=== PATIENT | female | born 1950 | race Caucasian/White ===

== ENCOUNTER 2021-12-30 20:25 | Observation (INO) ==
[2021-12-30 20:32] VITALS: BMI 40.9
--- NOTE | 2021-12-30 22:37 | DR.DIZZY ---
HPI Time seen Time Seen by Provider: 12/30/21 22:32 PCP Primary Care Physician: MARCIA HPI Comment HPI Comment: PATIENT IS 71YR OLD FEMALE IN ER WITH COUGH, CHILLS AND GENERALIZED WEAKNESS TIMES 3 DAYS. HE HAS BEING FALLING AND PASSING OUT. SHE IS EXPOSED TO COVID 19 VIRUS. HER TESTED POSITIVE TO VIRUS ONE WEEK AGO. SHE DENIES VOMITING OR DIARRHEA AND DENIES DYSURIA. DENIES INJURY FROM THE FALLS. Complaint Chief Complaint Doctor Comments: WEAK, FALLING AND PASSING OUT PAST 3 DAYS. Chief Complaint:: Pt states that she has been weak, falling, and passing out. Pt also reports fever, chills and cough. Pt states that her tested positive for Covid approximately 1 wk ago. Pt states that she has not been tested. COVID-19 Coronavirus risk:travel/contact w/high risk person: Yes Has patient experienced Coronavirus symptoms: Yes Coronavirus symptoms experienced: Fever and Coughing Nurses Notes Reviewed Nurses Notes Review: Yes Source History Provided: Patient Mode of Arrival Mode of Arrival: Wheelchair Timing Onset of Chief Complaint: 12/24/21 Came on: Suddenly Duration Duration: Constant Duration: Days Location of Weakness Weakness Location: Generalized Context Onset: At rest History of: None Stroke Symptoms: None Severity Severity: Normal activity level Modifying factors Worsens: Other (EXERTION.) Associated signs and symptoms Associated Signs and Symptoms: Faintness, Syncope, Weak and Fever PMH PMH Past Medical History: No Past Surgical History: Yes Surgical History: Abdominal Surgery Past Surgical History Comment: dental sugery 2 weeks ago Family History History of Family Medical Conditions: Yes Family Medical History: Cancer Travel Risk Coronavirus risk:travel/contact w/high risk person: Yes Has patient experienced Coronavirus symptoms: Yes Coronavirus symptoms experienced: Fever and Coughing Infectious screening Have you traveled outside the country in the last 6 months?: No Isolation: Droplet ROS Review of Systems Constitutional: See HPI, Fever, Weakness and Fatigue Eyes: No Symptoms Reported and See HPI ENTM: See HPI, Nose Discharge and Nose Congestion Respiratoy: See HPI and Moist Cough; negative Short of Breath and Wheezing Cardiovascular: No Symptoms Reported and See HPI; negative Chest Pain Gastrointestinal/Abdominal: No Symptoms Reported and See HPI; negative Abdominal Pain, Diarrhea and Vomiting Genitourinary: No Symptoms Reported and See HPI; negative Dysuria, Frequency and Hematuria Neurological: See HPI and Weakness; negative Headache and Dizziness Musculoskeletal: No Symptoms Reported and See HPI; negative Back Pain and Muscle Pain Integumentary: No Symptoms Reported and See HPI; negative Rash and Juandice Hematologic/Lymphatic: No Symptoms Reported and See HPI; negative Easy Bruising Endocrine: No Symptoms Reported and See HPI; negative Increased Thirst and Increased Urine Psychiatric: No Symptoms Reported and See HPI All Other Systems: Reviewed and Negative PE Vital Signs Vitals: Temperature 98.7 F Pulse Rate 85 Respiratory Rate 20 Blood Pressure 113/56 O2 Sat by Pulse Oximetry 92 General Limitations: No Limitations General Appearance: Alert and In No Apparent Distress Head Head Exam: Normal Inspection Eyes Eye exam: Normal Appearance; negative Scleral Icterus and Conjunctival Injection Pupils: Regular, Round: Bilateral and Reactive: Bilateral Sclera/Conjunctival: Normal Inspection: Bilateral ENT ENT Exam: Normal Exam, Normal External Ear Exam and TM's Normal Bilaterally; negative Normal Oropharynx Neck Neck Exam: Normal Inspection, Full ROM and Trachea Midline; negative Tenderness Chest Chest Inspection: Normal Inspection and Symmetric Chest Wall Rise; negative Tenderness Respiratory Respiratory Exam: Normal Lung Sounds Bilat; negative Accessory Muscle Use, Chest Wall Tenderness and Respiratory Distress Respiratory Exam: Bilateral: Rhonchi Cardiovascular Cardiovascular Exam: Regular Rate, Normal Rhythm and Normal Heart Sounds; negative Systolic Murmur and Diastolic Murmur Abdominal Exam Abdominal Exam: Normal Inspection, Normal Bowel Sounds and Soft; negative Tenderness Rectal Rectal Exam: Deferred Extremeties Extremities Exam: Normal Inspection, Full ROM and Normal Capillary Refill Back Back Exam: Normal Inspection and Full ROM; negative (R) CVA Tenderness and (L) CVA Tenderness Neurologic Neurological Exam: Alert and Oriented X3; negative Motor Sensory Deficit Patient Oriented To: Person, Place and Time Speech: Fluid Speech Cranial Nerve Exam: EOM Function (II, III, IV, ): Normal, Facial Sensation (V): Normal, Facial Palsy (VII): Normal, Gag reflex (XI): Normal and Tongue Deviation: Normal Motor Strength - LUE: 5/5 Motor Strength - RUE: 5/5 Motor Strength - LLE: 5/5 Motor Strength - RLE: 5/5 Upper Motor Neuron Exam: Babinski Sign: Normal Psychiatric Psychiatric Exam: Normal Affect and Normal Mood Skin Skin Exam: Dry MDM Differential Diagnosis Differential Diagnosis: Dehydration, Dysrhythmia, Electrolyte disorder, Hypoglycemia, Myocardial infarction, TIA and Other (PNEUMONIA.) COURSE Treatment Treatment: SEE ORDERS. NS L1 AT 125CC/HR, SOLUMEDROL 125MG IV AND ZOSYN 3.375G IVPB WAS GIVEN PATIENT IN ER. LABS AND XRAYS REPORTS WERE DISCUSSED AND PATIENT ADMITTED TO HOSPITAL FOR FURTHER MANAGEMENT. Consultation Consultation Comments: DISCUSSED PATIENT WITH DR. BROWN. HE WILL ADMIT PATIENT. Education/Counseling Education/Counseling: Patient Educated On: Diagnosis ROR Labs Reviewed Laboratory Results Reviewed?: Yes Result Diagrams: 01/02/22 04:45 01/02/22 04:45 Laboratory: WBC 5.0 X10^3/uL (3.6-10.0) 12/30/21 22:45 RBC 4.36 X10^6/uL (3.5-5.4) 12/30/21 22:45 Hgb 12.6 g/dL (12.0-16.0) 12/30/21 22:45 Hct 37.8 % (36.0-47.0) 12/30/21 22:45 MCV 86.7 fL (80.0-100.0) 12/30/21 22:45 MCH 28.8 pg (27.0-34.0) 12/30/21 22:45 MCHC 33.3 g/dL (33.0-35.0) 12/30/21 22:45 RDW 15.1 % (11.6-16.5) 12/30/21 22:45 Plt Count 214 X10^3/uL (150.0-450.0) 12/30/21 22:45 MPV 8.9 fL (7.4-11.0) 12/30/21 22:45 Neut % (Auto) 75.3 % (42.0-75.0) H 12/30/21 22:45 Lymph % (Auto) 9.7 % (21.0-51.0) L 12/30/21 22:45 Pickett % (Auto) 14.4 % (0.0-13.0) H 12/30/21 22:45 Eos % (Auto) 0.0 % (0.9-2.9) L 12/30/21 22:45 Baso % (Auto) 0.6 % (0.2-1.0) 12/30/21 22:45 Neut # (Auto) 3.8 x10^3/uL (2.2-4.8) 12/30/21 22:45 Lymph # (Auto) 0.5 X10^3/uL (1.3-2.9) L 12/30/21 22:45 Pickett # (Auto) 0.7 x10^3/uL (0.3-0.8) 12/30/21 22:45 Eos # (Auto) 0.0 x10^3/uL (0.0-0.2) 12/30/21 22:45 Baso # (Auto) 0.0 X10^3/uL (0.0-0.1) 12/30/21 22:45 Absolute Nucleated RBC 0.1 /100WBC 12/30/21 22:45 Sodium 135 mmol/L (136-145) L 12/30/21 22:45 Corrected Sodium 136 mmol/L (136-145) 12/30/21 22:45 Potassium 3.9 mmol/L (3.5-5.1) 12/30/21 22:45 Chloride 100 mmol/L (98-107) 12/30/21 22:45 Carbon Dioxide 29.9 mmol/L (21-32) 12/30/21 22:45 BUN 23 mg/dL (7-18) H 12/30/21 22:45 Creatinine 1.29 mg/dL (0.55-1.02) H 12/30/21 22:45 Est GFR (MDRD) Af Amer 52 (>60) L 12/30/21 22:45 Est GFR (MDRD) Non-Af 43 (>60) L 12/30/21 22:45 Glucose 134 mg/dL (65-99) H 12/30/21 22:45 Calcium 8.5 mg/dL (8.5-10.1) 12/30/21 22:45 Corrected Calcium 9.5 mg/dL (8.5-10.1) 12/30/21 22:45 Total Bilirubin 0.30 mg/dL (0.2-1.0) 12/30/21 22:45 AST 62 Units/L (15-37) H 12/30/21 22:45 ALT 40 Units/L (12-78) 12/30/21 22:45 Alkaline Phosphatase 104 Units/L (46-116) 12/30/21 22:45 Creatine Kinase 55 Units/L (26-192) 12/30/21 22:45 CK-MB (CK-2) < 1.0 ng/mL (0-4.0) 12/30/21 22:45 CK/CKMB % Calc 1.8 % (<4) 12/30/21 22:45 Troponin I High Sens 12.7 ng/L (4.0-60.0) 12/30/21 22:45 Total Protein 7.8 g/dL (6.4-8.2) 12/30/21 22:45 Albumin 2.7 g/dL (3.4-5.0) L 12/30/21 22:45 Globulin 5.1 g/dL (2.5-4.5) H 12/30/21 22:45 Albumin/Globulin Ratio 0.5 Ratio (1.1-2.1) L 12/30/21 22:45 Influenza Type A Ag Negative-presumptive (NEGATIVE) 12/30/21 23:06 Influenza Type B Ag Negative-presumptive (NEGATIVE) 12/30/21 23:06 SARS CoV-2 RNA Rapid ROXANN Positive (NEGATIVE) A 12/30/21 23:06 XRAY XRAY Interpreted by: Radiologist (REPORT NOTED AND DISCUSSED WITH PATIENT.) and Self Opioid Opioid Risk Tool Age (Rico box if 16-45): No Total: 0 Total Score Risk Category: Low Risk Copyright: [facility] predicting aberrant behaviors Diagnosis Discharge Problem: COVID-19 virus infection, Acute dehydration Pneumonia Qualifiers: Pneumonia type: due to unspecified organism Laterality: bilateral Lung l ocation: lower lobe of lung Qualified Code(s): J18.9 - Pneumonia, unspecified organism Syncopal episodes Qualifiers: Syncope type: unspecified Qualified Code(s): R55 - Syncope and collapse Instructions Instructions: Dehydration, Adult, [id number] Prone Position Therapy Near-Syncope, [id number] 10 Things You Can Do to Manage Your COVID-19 Symptoms at Home - [facility] (05/24/2020) Things to Know about the COVID-19 Pandemic - [facility] (02/07/2021) COVID-19: How to Protect Yourself and Others - [facility] COVID-19: Quarantine vs. Isolation - [facility] (11/09/2020) Community-Acquired Pneumonia, Adult, [id number] COVID-19: What to Do if You Are Sick - CDC (11/23/2020) Forms: Excuse From Work or School Precautions for COVID19 [facility] Social Distancing
[2021-12-30 22:52] LABS: BASOPHILS % (AUTO) 0.6 % (0.2-1.0); HEMATOCRIT 37.8 % (36.0-47.0); HEMOGLOBIN 12.6 g/dL (12.0-16.0); LYMPHOCYTES # (AUTO) 0.5 X10^3/uL (1.3-2.9); LYMPHOCYTES % (AUTO) 9.7 % (21.0-51.0); MEAN CORPUSCULAR HEMOGLOBIN 28.8 pg (27.0-34.0); MEAN CORPUSCULAR HGB CONC 33.3 g/dL (33.0-35.0); MEAN CORPUSCULAR VOLUME 86.7 fL (80.0-100.0); MEAN PLATELET VOLUME 8.9 fL (7.4-11.0); MONOCYTES # (AUTO) 0.7 x10^3/uL (0.3-0.8); MONOCYTES % (AUTO) 14.4 % (0.0-13.0); NEUTROPHILS # (AUTO) 3.8 x10^3/uL (2.2-4.8); NEUTROPHILS % (AUTO) 75.3 % (42.0-75.0); RED BLOOD COUNT 4.36 X10^6/uL (3.5-5.4); RED CELL DISTRIBUTION WIDTH 15.1 % (11.6-16.5)
[2021-12-30] MEDS ORDERED: NS 1,000 ML IV 1,000 ML ONE (22:54)
[2021-12-30] MEDS ORDERED: NS 1,000 ML IV 1,000 ML IV SCH (23:00)
[2021-12-30 23:14] LABS: ALANINE AMINOTRANSFERASE 40 Units/L (12-78); ALBUMIN 2.7 g/dL (3.4-5.0); ALKALINE PHOSPHATASE 104 Units/L (46-116); ASPARTATE AMINO TRANSFERASE 62 Units/L (15-37); BLOOD UREA NITROGEN 23 mg/dL (7-18); CALCIUM 8.5 mg/dL (8.5-10.1); CARBON DIOXIDE 29.9 mmol/L (21-32); CHLORIDE 100 mmol/L (98-107); CKMB % 1.8 % (<4); COR CA(FOR HYPOALB) 9.5 mg/dL (8.5-10.1); COR NA(FOR HYPERGLY) 136 mmol/L (136-145); CREATINE KINASE 55 Units/L (26-192); CREATINE KINASE MB < 1.0 ng/mL (0-4.0); CREATININE 1.29 mg/dL (0.55-1.02); SODIUM 135 mmol/L (136-145); TOTAL PROTEIN 7.8 g/dL (6.4-8.2); eGFR NON BLACK RACES 43 (>60)
--- NOTE | 2021-12-30 23:27 | CT ---
STUDY: CT HEAD WITHOUT IV CONTRASTCOMPARISON: NoneTECHNIQUE: axial images were acquired of the head without IV contrast. Coronal and sagittal images were provided. All images were reviewed in a variety of windows and levels.LIMITATIONS: Please note that CT has low sensitivity and accuracy for identifying acute infarction. In addition, there are portions of the brain that are affected by beam hardening artifact which further greatly limits identification of an acute infarct.RADIATION REDUCTION TECHNIQUE: Automated exposure control, Adjustment of the mA and/or kV according to patient size, or iterative reconstruction techniques were used.HISTORY: PT C/O PASSING OUTFINDINGS:There is diffuse cerebral atrophy with a regional distribution of low attenuation along the periventricular white matter most likely representing small vessel ischemic changes which are to a degree that would be considered within normal limits for the patient's stated age.There is no evidence of an acute intracranial bleed.There is no evidence of a mass or midline shift.There is no evidence of an extra-axial fluid collection.The hagan-white matter differentiation is within normal limits.The visualized bones are unremarkable.The visualized sinuses demonstrates circumferential mucosal thickening and edema involving the bilateral maxillary and ethmoid sinuses with a small air-fluid level in the right maxillary sinus suggesting an infectious or inflammatory sinus process.The mastoid air cells are well-aerated.IMPRESSION:1. INVOLUTIONAL CHANGES ARE PRESENT WITH FINDINGS SUGGESTING SMALL VESSEL ISCHEMIC DISEASE WHICH IS TO A DEGREE THAT WOULD BE CONSIDERED WITHIN NORMAL LIMITS FOR THE PATIENT'S STATED AGE.2. THERE IS NO EVIDENCE OF ACUTE INTRACRANIAL BLEED.Jaqui blood signed by: Jeremy Call (Dec 30, 2021 23:26:33)
--- NOTE | 2021-12-30 23:28 | RAD ---
STUDY: FRONTAL VIEW CHESTCOMPARISON: NoneHISTORY: COUGHFINDINGS:Nonspecific multifocal pleural based opacities are seen in the bilateral mid and lower lung zones.The heart size is within normal limits.The mediastinum is unremarkable.There is no evidence of pleural effusion or gross pneumothorax.The trachea is midline.IMPRESSION:1. Multifocal pleural based opacities are present in the bilateral mid and lower lung zones. This may represent acute or chronic airspace disease. Follow-up to complete resolution may be obtained as clinically indicated indicated.Electronically signed by: Jeremy Call (Dec 30, 2021 23:27:06)
[2021-12-31] MEDS ORDERED: SOLU-Medrol 125 MG VIAL IVP ONE (01:57)
[2021-12-31] MEDS ORDERED: ZOSYN VIAL 3.375 GRAMS 3.375 G in NS 100 ML IV + SPIKE MINIBAG* 100 ML IV ONE (01:59)
[2021-12-31] MEDS ORDERED: NS 100 ML IV + SPIKE MINIBAG* 100 ML IV ONE (02:06)
[2021-12-31] MEDS ORDERED: ZOSYN VIAL 3.375 GRAMS IV ONE (02:06)
[2021-12-31] MEDS ORDERED: SOLU-Medrol 125 MG VIAL ONE (02:06)
[2021-12-31] MEDS: NS 1,000 ML IV 1,000 ML IV SCH ×3 (03:13→21:02)
[2021-12-31] MEDS: ASCORBIC ACID INJ MULTI-DOSE VIAL 1,500 MG in NS 100 ML IV 100 ML IV SCH ×4 (03:13→20:06)
[2021-12-31 05:25] LABS: BASOPHILS % (AUTO) 0.4 % (0.2-1.0); HEMOGLOBIN 11.7 g/dL (12.0-16.0); LYMPHOCYTES # (AUTO) 0.3 X10^3/uL (1.3-2.9); MEAN CORPUSCULAR HEMOGLOBIN 28.8 pg (27.0-34.0); MEAN CORPUSCULAR HGB CONC 33.5 g/dL (33.0-35.0); MEAN CORPUSCULAR VOLUME 85.9 fL (80.0-100.0); MEAN PLATELET VOLUME 9.4 fL (7.4-11.0); MONOCYTES # (AUTO) 0.3 x10^3/uL (0.3-0.8); MONOCYTES % (AUTO) 8.9 % (0.0-13.0); NEUTROPHILS # (AUTO) 3.1 x10^3/uL (2.2-4.8); NEUTROPHILS % (AUTO) 82.7 % (42.0-75.0); RED BLOOD COUNT 4.07 X10^6/uL (3.5-5.4); WHITE BLOOD COUNT 3.8 X10^3/uL (3.6-10.0)
[2021-12-31 05:49] LABS: ALANINE AMINOTRANSFERASE 40 Units/L (12-78); ALBUMIN 2.5 g/dL (3.4-5.0); ALKALINE PHOSPHATASE 95 Units/L (46-116); ASPARTATE AMINO TRANSFERASE 59 Units/L (15-37); BLOOD UREA NITROGEN 23 mg/dL (7-18); CALCIUM 7.5 mg/dL (8.5-10.1); CARBON DIOXIDE 31.3 mmol/L (21-32); CHLORIDE 101 mmol/L (98-107); CKMB % 1.9 % (<4); COR CA(FOR HYPOALB) 8.7 mg/dL (8.5-10.1); COR NA(FOR HYPERGLY) 137 mmol/L (136-145); CREATINE KINASE 53 Units/L (26-192); CREATINE KINASE MB < 1.0 ng/mL (0-4.0); MAGNESIUM 2.1 mg/dL (1.7-2.9); SODIUM 137 mmol/L (136-145); TOTAL PROTEIN 7.2 g/dL (6.4-8.2); eGFR NON BLACK RACES 52 (>60)
[2021-12-31] MEDS: ZINC SULFATE PO SCH ×2 (08:17→20:07)
[2021-12-31] MEDS: TRICOR TAB 160 MG PO SCH (08:17)
[2021-12-31] MEDS: PEPCID TAB 40 MG PO SCH ×2 (08:17→20:07)
[2021-12-31] MEDS ORDERED: PHARMACY CONSULT - IVERMECTIN XX SCH (09:00)
[2021-12-31] MEDS ORDERED: VITAMIN D (1.25MG) PO SCH (09:00)
[2021-12-31] MEDS ORDERED: REMDESIVIR 200 MG in NS 250 ML IV 250 ML IV ONE (09:27)
[2021-12-31] MEDS: DUONEB 0.5 MG/3 MG (3 mL) NEB SCH ×4 (09:42→21:05)
[2021-12-31] MEDS: PULMICORT NEB TX 0.5 MG NEB SCH ×2 (09:42→21:05)
[2021-12-31] MEDS: LOVENOX INJ 30 MG SYR SC SCH ×2 (10:02→20:06)
[2021-12-31] MEDS: IVERMECTIN PO SCH (10:02)
[2021-12-31] MEDS: LUVOX PO SCH ×2 (10:02→20:07)
--- NOTE | 2021-12-31 10:20 | DR.H&P ---
H&P - History & Physical for Day of: H&P Date: 12/31/21 - Chief Complaint Chief Complaint: COUGH, SOB, WEAKNESS, FEVER, CHILLS, FREQUENT FALLS - History of Present Illness History of Present Illness: IS A 71 YEAR OLD WHITE FEMALE. SHE PRESENTED TO THE ER WITH COMPLAINTS OF COUGH, SHORTNESS OF BREATH, WEAKNESS, FEVER, FREQUENT FALLS. PATIENT REPORTS THAT SHE PASSED OUT THREE DAYS PRIOR TO ARRIVAL. SHE REPORTS THAT HER TESTED POSITIVE FOR COVID-19 APPROXIMATELY ONE WEEK PRIOR. SHE DENIES ANY PMH. AUSCULTATION OF LUNG TELLEZ REVEALED RHONCHI THROUGHOUT. ON ARRIVAL TO THE ER, HER VITALS WERE: 98.7-85-20-92%-113/56. LABS WERE OBTAINED. WBC 5.0, HGB 12.6, HCT 37.8, SODIUM 135, POTASSIUM 3.9, CHLORIDE 100, BUN 23, CREATININE 1.29, GLUCOSE 134, CALCIUM 8.5, AST 62, ALT 40, TOTAL PROTEIN 7.8, ALBUMIN 2.7. CARDIAC ENZYMES WERE WITHIN NORMAL LIMITS. INFLUENZA NEGATIVE. PATIENT WAS POSITIVE FOR COVID-19. A BRAIN CT WAS OBTAINED AND REVEALED: 1. INVOLUTIONAL CHANGES ARE PRESENT WITH FINDINGS SUGGESTING SMALL VESSEL ISCHEMIC DISEASE WHICH IS TO A DEGREE THAT WOULD BE CONSIDERED WITHIN NORMAL LIMITS FOR THE PATIENT'S STATED AGE. 2. THERE IS NO EVIDENCE OF ACUTE INTRACRANIAL BLEED. A CHEST XRAY WAS OBTAINED AND REVEALED: 1. Multifocal pleural based opacities are present in the bilateral mid and lower lung zones. This may represent acute or chronic airspace disease. Follow-up to complete resolution may be obtained as clinically indicated indicated. IN THE ER, SHE WAS GIVEN SOLU-MEDROL 125MG IV X 1, ZOSYN 3.375G IV X 1. SHE WAS ADMITTED TO THE HOSPITAL FOR FURTHER EVALUATION AND TREATMENT OF PNEUMONIA DUE TO COVID-19, SYNCOPY, DEHYDRATION. SHE WAS STARTED ON NORMAL SALINE AT 125 ML/HR, REMDESIVIR DAILY X 5 DAYS, SOLU-MEDROL 80MG IV Q8H, DUONEBS QID, PULMICORT NEBS BID, LOVENOX 30MG SC BID, ASCORBIC ACID 1500MG IV Q6H, VITAMIN D DAILY, PEPCID 40MG PO BID, TRICOR 160MG PO DAILY, LUVOX 50MG PO BID, IVERMECTIN 60MG PO DAILY X 5 DAYS, ZOSYN 3.375G IV TID, VITAMIN A DAILY, ZINC 220MG PO BID. OTHERWISE, WE PLAN TO FOLLOW UP WITH AM LABS AND CHEST XRAY AND CONTINUE TO MONITOR. TIME SPENT ON CLINICAL ASSESSMENT, REVIEWING LABS AND IMAGING, DECISION MAKING, AND DOCUMENTATION GREATER THAN 75 MINUTES. - Past Surgical History Surgical History: Appendectomy - Family History Family Medical History: Cancer - Social History Alcohol Use: None Drug Use: None - Medications Home Medications: No Known Drug Allergies Allergy (Verified 12/30/21 20:26) CONTINUE taking the following medications azithromycin 250 mg PO DAILY 12/31/21 [History] [id number] 10 ml PO TID PRN 12/31/21 [History] - Review of Systems Constitutional: See HPI, Fever, Chills, Weakness Eyes: No Symptoms Reported ENT: Nose Congestion Respiratory: See HPI, Cough, Shortness of Breath Cardiovascular: No Symptoms Reported Gastrointestinal: No Symptoms Reported Genitourinary: No Symptoms Reported Musculoskeletal: No Symptoms Reported Skin: No Symptoms Reported Neurological: Weakness - Physical Exam Vital Signs: Temperature 97.9 F Pulse Rate [Left] 66 Pulse Rate 98 Respiratory Rate 24 Blood Pressure [Right Arm] 113/56 Blood Pressure [Left Arm] 108/52 Blood Pressure 115/65 O2 Sat by Pulse Oximetry 99 Oriented: Normal Eyes: Normal Ear: Normal Nose: Normal Throat: Normal Respiratory: Diminished Throughout, Rhonchi Throughout Cardiovascular: Normal : Normal Auscultation: Bowel Sounds: Normal Palpation: Normal Tenderness: Normal Skin: Decreased Turgur, Bruising Musculoskeletal: Normal Psychiatric: Normal Mood Description: Calm Affect: Normal Speech Pattern: Clear - Assessment/Plan (1) Pneumonia due to COVID-19 virus Status: Acute Plan: ADMIT, SUPPLEMENTAL OXYGEN, IV FLUIDS, IV ANTIBITOTICS, NEB TX, IV REMDESIVIR, IV STEROIDS, IVERMECTIN, IMMUNE SUPPLEMENTS (2) Acute dehydration Status: Acute (3) Syncopal episodes Qualifiers: Syncope type: unspecified Qualified Code(s): R55 - Syncope and collapse Status: Acute - Allergies Allergies/Adverse Reactions: Allergies Allergy/AdvReac Type Severity Reaction Status Date / Time No Known Drug Allergies Allergy Verified 12/30/21 20:26
[2021-12-31] MEDS: ZOSYN VIAL 3.375 GRAMS 3.375 G in NS 100 ML IV + SPIKE MINIBAG* 100 ML IV SCH ×2 (11:22→21:02)
[2021-12-31] MEDS: SOLU-Medrol 40 MG VIAL IVP SCH ×2 (13:29→21:01)
[2021-12-31 13:40] LABS: BILIRUBIN,URINE NEGATIVE (NEGATIVE); BLOOD/HEMOGLOBIN,URINE NEGATIVE (NEGATIVE); GLUCOSE, URINE NEGATIVE (NEGATIVE); KETONES,URINE NEGATIVE (NEGATIVE); LEUKOCYTE ESTERASE ,URINE 1+ (NEGATIVE); NITRITES,URINE NEGATIVE (NEGATIVE); PROTEIN,URINE 2+ (NEGATIVE); UROBILINOGEN,URINE NORMAL (NORMAL)
[2021-12-31 13:53] LABS: APPEARANCE,URINE CLEAR (CLEAR); BACTERIA,URINE TRACE /HPF (NEGATIVE); COLOR,URINE YELLOW (YELLOW); RBC,URINE 0-2 /HPF (0-3); SQUAMOUS EPITHELIAL CELL,UR RARE /HPF (NEGATIVE)
[2021-12-31 17:01] LABS: CREATINE KINASE MB 1.1 ng/mL (0-4.0)
[2022-01-01] MEDS: ASCORBIC ACID INJ MULTI-DOSE VIAL 1,500 MG in NS 100 ML IV 100 ML IV SCH ×2 (02:32→08:42)
[2022-01-01] MEDS: SOLU-Medrol 40 MG VIAL IVP SCH ×3 (05:04→21:35)
[2022-01-01] MEDS: NS 1,000 ML IV 1,000 ML IV SCH ×2 (05:04→20:09)
[2022-01-01] MEDS: ZOSYN VIAL 3.375 GRAMS 3.375 G in NS 100 ML IV + SPIKE MINIBAG* 100 ML IV SCH ×3 (05:04→21:35)
[2022-01-01 05:25] LABS: BASOPHILS % (AUTO) 0.1 % (0.2-1.0); HEMATOCRIT 32.6 % (36.0-47.0); HEMOGLOBIN 10.9 g/dL (12.0-16.0); LYMPHOCYTES # (AUTO) 0.4 X10^3/uL (1.3-2.9); LYMPHOCYTES % (AUTO) 8.3 % (21.0-51.0); MEAN CORPUSCULAR HEMOGLOBIN 28.8 pg (27.0-34.0); MEAN CORPUSCULAR HGB CONC 33.4 g/dL (33.0-35.0); MEAN CORPUSCULAR VOLUME 86.4 fL (80.0-100.0); MEAN PLATELET VOLUME 9.3 fL (7.4-11.0); MONOCYTES # (AUTO) 0.5 x10^3/uL (0.3-0.8); MONOCYTES % (AUTO) 9.7 % (0.0-13.0); NEUTROPHILS # (AUTO) 4.4 x10^3/uL (2.2-4.8); NEUTROPHILS % (AUTO) 81.9 % (42.0-75.0); RED BLOOD COUNT 3.77 X10^6/uL (3.5-5.4); RED CELL DISTRIBUTION WIDTH 14.8 % (11.6-16.5); WHITE BLOOD COUNT 5.3 X10^3/uL (3.6-10.0)
[2022-01-01 05:45] LABS: ALANINE AMINOTRANSFERASE 29 Units/L (12-78); ALBUMIN 2.2 g/dL (3.4-5.0); ALKALINE PHOSPHATASE 94 Units/L (46-116); ASPARTATE AMINO TRANSFERASE 37 Units/L (15-37); BLOOD UREA NITROGEN 20 mg/dL (7-18); CALCIUM 7.4 mg/dL (8.5-10.1); CARBON DIOXIDE 28.2 mmol/L (21-32); CHLORIDE 107 mmol/L (98-107); COR CA(FOR HYPOALB) 8.8 mg/dL (8.5-10.1); COR NA(FOR HYPERGLY) 143 mmol/L (136-145); CREATININE 1.01 mg/dL (0.55-1.02); SODIUM 141 mmol/L (136-145); TOTAL PROTEIN 6.4 g/dL (6.4-8.2); eGFR NON BLACK RACES 57 (>60)
--- NOTE | 2022-01-01 07:45 | RAD ---
HISTORYSOBSTUDYAP chestCOMPARISONFebruary 2021FINDINGSCardiomegaly is present. There are bilateral peripheral indistinct areas of airspace involvement, similar in the right lung and slightly increasing in the left lung. No hilar enlargement, pleural fluid or pneumothorax seen.IMPRESSIONMild stable cardiac enlargement. Persistent bilateral pulmonary infiltrates, slightly increased in the left lung, the appearance suggesting an atypical pneumonia.Electronically signed by: MISHEL ELDRIDGE (Jan 01, 2022 07:45:04)
[2022-01-01] MEDS: DUONEB 0.5 MG/3 MG (3 mL) NEB SCH ×4 (08:35→20:43)
[2022-01-01] MEDS: PULMICORT NEB TX 0.5 MG NEB SCH ×2 (08:35→20:43)
[2022-01-01] MEDS: PEPCID TAB 40 MG PO SCH ×2 (08:43→20:11)
[2022-01-01] MEDS: LOVENOX INJ 30 MG SYR SC SCH ×2 (08:43→20:09)
[2022-01-01] MEDS: LUVOX PO SCH ×2 (08:43→20:11)
[2022-01-01] MEDS: TRICOR TAB 160 MG PO SCH (08:44)
[2022-01-01] MEDS: ZINC SULFATE PO SCH ×2 (08:44→20:11)
[2022-01-01] MEDS: IVERMECTIN PO SCH (08:45)
[2022-01-01] MEDS: REMDESIVIR 100 MG in NS 250 ML IV 250 ML IV SCH (10:04)
[2022-01-01] MEDS: VITAMIN C PO SCH ×2 (16:50→20:11)
[2022-01-02] MEDS: VITAMIN C PO SCH ×2 (02:30→08:13)
[2022-01-02] MEDS: ZOSYN VIAL 3.375 GRAMS 3.375 G in NS 100 ML IV + SPIKE MINIBAG* 100 ML IV SCH (05:13)
[2022-01-02] MEDS: SOLU-Medrol 40 MG VIAL IVP SCH (05:13)
[2022-01-02 05:30] LABS: BASOPHILS % (AUTO) 0.1 % (0.2-1.0); HEMATOCRIT 31.2 % (36.0-47.0); HEMOGLOBIN 10.2 g/dL (12.0-16.0); LYMPHOCYTES # (AUTO) 0.5 X10^3/uL (1.3-2.9); LYMPHOCYTES % (AUTO) 3.7 % (21.0-51.0); MEAN CORPUSCULAR HEMOGLOBIN 28.3 pg (27.0-34.0); MEAN CORPUSCULAR HGB CONC 32.7 g/dL (33.0-35.0); MEAN CORPUSCULAR VOLUME 86.7 fL (80.0-100.0); MEAN PLATELET VOLUME 9.7 fL (7.4-11.0); MONOCYTES # (AUTO) 0.8 x10^3/uL (0.3-0.8); MONOCYTES % (AUTO) 6.1 % (0.0-13.0); NEUTROPHILS # (AUTO) 11.4 x10^3/uL (2.2-4.8); NEUTROPHILS % (AUTO) 90.1 % (42.0-75.0); RED CELL DISTRIBUTION WIDTH 15.4 % (11.6-16.5); WHITE BLOOD COUNT 12.7 X10^3/uL (3.6-10.0)
[2022-01-02 05:51] LABS: ALANINE AMINOTRANSFERASE 25 Units/L (12-78); ALBUMIN 2.1 g/dL (3.4-5.0); ALKALINE PHOSPHATASE 83 Units/L (46-116); ASPARTATE AMINO TRANSFERASE 34 Units/L (15-37); BLOOD UREA NITROGEN 20 mg/dL (7-18); CALCIUM 7.1 mg/dL (8.5-10.1); CARBON DIOXIDE 27.1 mmol/L (21-32); CHLORIDE 110 mmol/L (98-107); COR CA(FOR HYPOALB) 8.6 mg/dL (8.5-10.1); COR NA(FOR HYPERGLY) 149 mmol/L (136-145); CREATININE 0.91 mg/dL (0.55-1.02); SODIUM 146 mmol/L (136-145); TOTAL PROTEIN 5.7 g/dL (6.4-8.2); eGFR NON BLACK RACES > 60 (>60)
[2022-01-02 06:12] LABS: PLATELET MORPHOLOGY COMMENT NORMAL (NORMAL)
[2022-01-02] MEDS ORDERED: K-DUR TAB 20 MEQ PO PRN (06:24)
[2022-01-02] MEDS ORDERED: MAGNESIUM SULFATE 1 GRAM/100 mL PREMIX 1 G/100 ML BAG IV PRN (06:24)
[2022-01-02] MEDS ORDERED: K-RIDER 10 MEQ/NS 100 ML 10 MEQ/100 ML BAG IV PRN (06:24)
[2022-01-02] MEDS ORDERED: POTASSIUM CHL 40 MEQ/NS 0.45% 500 ML IV PRN (06:24)
[2022-01-02] MEDS ORDERED: KLOR-CON PO PRN (06:24)
[2022-01-02] MEDS ORDERED: MICRO K EXTEN CAP 10 MEQ PO PRN (06:24)
[2022-01-02] MEDS ORDERED: POTASSIUM CHLORIDE LIQ 20 MEQ UDC PO PRN (06:24)
[2022-01-02] MEDS ORDERED: POTASSIUM CHL 60 MEQ/NS 0.45% 500 ML IV PRN (06:24)
--- NOTE | 2022-01-02 07:12 | RAD ---
HISTORYSOBSTUDYCHEST, 1 VIEWCOMPARISONOne day prior.TECHNIQUEAP view of the chestFINDINGSThe cardiac silhouette is stably enlarged. Mediastinal contours appear stable. No significant change in bilateral airspace and interstitial opacities. No definite pleural effusion or pneumothorax. Soft tissue attenuation limits evaluation.IMPRESSIONNo significant change.Electronically signed by: Robert Jewell (Jan 02, 2022 07:11:41)
[2022-01-02] MEDS: LOVENOX INJ 30 MG SYR SC SCH (08:11)
[2022-01-02] MEDS: LUVOX PO SCH (08:11)
[2022-01-02] MEDS: IVERMECTIN PO SCH (08:11)
[2022-01-02] MEDS: TRICOR TAB 160 MG PO SCH (08:12)
[2022-01-02] MEDS: REMDESIVIR 100 MG in NS 250 ML IV 250 ML IV SCH (08:12)
[2022-01-02] MEDS: PEPCID TAB 40 MG PO SCH (08:12)
[2022-01-02] MEDS: ZINC SULFATE PO SCH (08:13)
[2022-01-02] MEDS: DUONEB 0.5 MG/3 MG (3 mL) NEB SCH (08:15)
[2022-01-02] MEDS: PULMICORT NEB TX 0.5 MG NEB SCH (08:15)
--- NOTE | 2022-01-02 08:18 | PCM.PROG ---
Progress Note - Progress Note for Day of Date of Exam: 01/01/22 - Subjective Subjective: WAS ADMITTED FOR TREATMENT OF PNEUMONIA DUE TO COVID-19, DEHYDRATION, AND SYNCOPE. TODAY, SHE IS ALERT AND ORIENTED, SITTING UP IN BED ON MORNING ROUNDS. SHE CONTINUES WITH COMPLAINTS OF INTERMITTENT COUGH AND SHORTNESS OF BREATH. SHE IS CURRENTLY UTILIZING OXYGEN VIA NASAL CANNULA AT 2 LPM. SATURATIONS HAVE REMAINED IN THE 90s THIS MORNING AND THROUGHOUT THE NIGHT. ON EXAMINATION, HEART IS REGULAR IN RATE AND RHYTHM. BILATERAL LUNGS NOTED WITH DIMINISHED LUNG SOUNDS THROUGHOUT. ABDOMEN IS ROUND, SOFT, AND NON-TENDER WITH NORMAL BOWEL SOUNDS NOTED IN ALL QUADRANTS. HER VITALS THIS MORNING ARE: 97.9-62-21-94%-102/52. LABS WERE OBTAINED. ABNORMAL LAB VALUES INCLUDE THE FOLLOWING: HGB 10.9, HCT 32.6, BUN 20, GLUCOSE 195, CALCIUM 7.4, CRP 16.70, BNP 334, ALBUMIN 2.2. A URINE CULTURE IS PENDING. CHEST XRAY OBTAINED AND REVEALED: Mild stable cardiac enlargement. Persistent bilateral pulmonary infiltrates, slightly increased in the left lung, the appearance suggesting an atypical pneumonia. SHE IS CURRENTLY RECEIVING NORMAL SALINE AT 125 ML/HR, REMDESIVIR 100MG IV DAILY, SOLU-MEDROL 80MG IV Q8H, DUONEBS QID, PULMICORT NEBS BID, LOVENOX 30MG SC BID, ASCORBIC ACID 1500MG IV Q6H, VITAMIN D DAILY, PEPCID 40MG PO BID, TRICOR 160MG PO DAILY, LUVOX 50MG PO BID, IVERMECTIN 60MG PO DAILY X 5 DAYS, ZOSYN 3.375G IV TID, VITAMIN A DAILY, ZINC 220MG PO BID. WE WILL CONTINUE WITH CURRENT PLAN OF CARE TODAY. OTHERWISE, WE PLAN TO FOLLOW UP WITH AM LABS AND CONTINUE TO MONITOR. TIME SPENT ON CLINICAL ASSESSMENT, REVIEWING LABS AND IMAGING, DECISION MAKING, AND DOCUMENTATION GREATER THAN 45 MINUTES. - Past Medical Family Social History Past Med/Fam/Surg Hx: No changes since H&P Allergies: Allergies No Known Drug Allergies Allergy (Verified 12/30/21 20:26) - Review of Systems ROS: No change since H&P - Vital Signs and I&O's Vital Signs: Temperature 98.3 F Pulse Rate [Left] 66 Pulse Rate 57 Respiratory Rate 18 Blood Pressure [Right Arm] 113/56 Blood Pressure [Left Arm] 108/52 Blood Pressure 107/59 O2 Sat by Pulse Oximetry 98 Intake and Output: Intake & Output 12/30/21 12/31/21 01/01/22 01/02/22 11:59 11:59 11:59 11:59 Intake Total 380 / 380 4414 / 4414 4254 / 4254 Output Total 2400 / 2400 400 / 400 Balance 380 / 380 2013 3854 / 3854 - Physical Exam Oriented: Normal Eyes: Normal Ear: Normal Nose: Normal Throat: Normal Respiratory: Generalized, Diminished Cardiovascular: Normal : Normal Auscultation: Bowel Sounds: Normal Palpation: Normal Tenderness: Normal Skin: Decreased Turgur, Bruising Musculoskeletal: Normal Psychiatric: Normal Mood Description: Calm Affect: Normal Speech Pattern: Clear, Appropriate - Laboratory and Diagnostics Result Diagrams: 01/02/22 04:45 01/02/22 04:45 Labs: Laboratory WBC 12.7 X10^3/uL (3.6-10.0) H 01/02/22 04:45 RBC 3.60 X10^6/uL (3.5-5.4) 01/02/22 04:45 Hgb 10.2 g/dL (12.0-16.0) L 01/02/22 04:45 Hct 31.2 % (36.0-47.0) L 01/02/22 04:45 MCV 86.7 fL (80.0-100.0) 01/02/22 04:45 MCH 28.3 pg (27.0-34.0) 01/02/22 04:45 MCHC 32.7 g/dL (33.0-35.0) L 01/02/22 04:45 RDW 15.4 % (11.6-16.5) 01/02/22 04:45 Plt Count 207 X10^3/uL (150.0-450.0) 01/02/22 04:45 Plt Count Comment Adequate (ADEQUATE) 01/02/22 04:45 MPV 9.7 fL (7.4-11.0) 01/02/22 04:45 Neut % (Auto) 90.1 % (42.0-75.0) H 01/02/22 04:45 Lymph % (Auto) 3.7 % (21.0-51.0) L 01/02/22 04:45 Oliver % (Auto) 6.1 % (0.0-13.0) 01/02/22 04:45 Eos % (Auto) 0.0 % (0.9-2.9) L 01/02/22 04:45 Baso % (Auto) 0.1 % (0.2-1.0) L 01/02/22 04:45 Neut # (Auto) 11.4 x10^3/uL (2.2-4.8) H 01/02/22 04:45 Lymph # (Auto) 0.5 X10^3/uL (1.3-2.9) L 01/02/22 04:45 Oliver # (Auto) 0.8 x10^3/uL (0.3-0.8) 01/02/22 04:45 Eos # (Auto) 0.0 x10^3/uL (0.0-0.2) 01/02/22 04:45 Baso # (Auto) 0.0 X10^3/uL (0.0-0.1) 01/02/22 04:45 Absolute Nucleated RBC 0.1 /100WBC 01/02/22 04:45 Total Counted 100 01/02/22 04:45 Neutrophils % (Manual) 90 % (39-76) H 01/02/22 04:45 Lymphocytes % (Manual) 4 % (13-43) L 01/02/22 04:45 Monocytes % (Manual) 6 % (4-9) 01/02/22 04:45 Plt Morphology Comment Normal (NORMAL) 01/02/22 04:45 RBC Morphology Normal (NORMAL) 01/02/22 04:45 D-Dimer 1.86 ug/ml (0.0-0.57) H* 12/31/21 05:11 Sodium 146 mmol/L (136-145) H 01/02/22 04:45 Corrected Sodium 149 mmol/L (136-145) H 01/02/22 04:45 Potassium 3.2 mmol/L (3.5-5.1) L 01/02/22 04:45 Chloride 110 mmol/L (98-107) H 01/02/22 04:45 Carbon Dioxide 27.1 mmol/L (21-32) 01/02/22 04:45 BUN 20 mg/dL (7-18) H 01/02/22 04:45 Creatinine 0.91 mg/dL (0.55-1.02) 01/02/22 04:45 Est GFR (MDRD) Af Amer > 60 (>60) 01/02/22 04:45 Est GFR (MDRD) Non-Af > 60 (>60) 01/02/22 04:45 Glucose 211 mg/dL (65-99) H 01/02/22 04:45 Calcium 7.1 mg/dL (8.5-10.1) L 01/02/22 04:45 Corrected Calcium 8.6 mg/dL (8.5-10.1) 01/02/22 04:45 Magnesium 2.1 mg/dL (1.7-2.9) 01/02/22 04:45 Total Bilirubin 0.20 mg/dL (0.2-1.0) 01/02/22 04:45 AST 34 Units/L (15-37) 01/02/22 04:45 ALT 25 Units/L (12-78) 01/02/22 04:45 Alkaline Phosphatase 83 Units/L (46-116) 01/02/22 04:45 Creatine Kinase 55 Units/L (26-192) 12/31/21 10:30 Creatine Kinase Cancelled 12/31/21 10:30 CK-MB (CK-2) 1.1 ng/mL (0-4.0) 12/31/21 10:30 CK-MB (CK-2) Cancelled 12/31/21 10:30 CK/CKMB % Calc 2.0 % (<4) 12/31/21 10:30 CK/CKMB % Calc Cancelled 12/31/21 10:30 Troponin I High Sens 9.2 ng/L (4.0-60.0) 12/31/21 10:30 Troponin I High Sens Cancelled 12/31/21 10:30 C-Reactive Protein 8.00 mg/L (0-3.0) H 01/02/22 04:45 B-Natriuretic Peptide 183 pg/mL (0-79) H 01/02/22 04:45 Total Protein 5.7 g/dL (6.4-8.2) L 01/02/22 04:45 Albumin 2.1 g/dL (3.4-5.0) L 01/02/22 04:45 Globulin 3.6 g/dL (2.5-4.5) 01/02/22 04:45 Albumin/Globulin Ratio 0.6 Ratio (1.1-2.1) L 01/02/22 04:45 Specimen Type Clean catch urine 12/31/21 13:30 Urine Color Yellow (YELLOW) 12/31/21 13:30 Urine Appearance Clear (CLEAR) 12/31/21 13:30 Urine pH 6.0 (5.0 - 8.0) 12/31/21 13:30 Ur Specific [place] 1.015 (1.000-1.030) 12/31/21 13:30 Urine Protein 2+ (NEGATIVE) 12/31/21 13:30 Urine Glucose (UA) Negative (NEGATIVE) 12/31/21 13:30 Urine Ketones Negative (NEGATIVE) 12/31/21 13:30 Urine Occult Blood Negative (NEGATIVE) 12/31/21 13:30 Urine Nitrite Negative (NEGATIVE) 12/31/21 13:30 Urine Bilirubin Negative (NEGATIVE) 12/31/21 13:30 Urine Urobilinogen Normal (NORMAL) 12/31/21 13:30 Ur Leukocyte Esterase 1+ (NEGATIVE) 12/31/21 13:30 Urine RBC 0-2 /HPF (0-3) 12/31/21 13:30 Urine WBC 5-10 /HPF (0-5) A 12/31/21 13:30 Ur Squamous Epith Cells Rare /HPF (NEGATIVE) 12/31/21 13:30 Urine Bacteria Trace /HPF (NEGATIVE) 12/31/21 13:30 Ur Culture Indicated? No/not indicated 12/31/21 13:30 Influenza Type A Ag Negative-presumptive (NEGATIVE) 12/30/21 23:06 Influenza Type B Ag Negative-presumptive (NEGATIVE) 12/30/21 23:06 SARS CoV-2 RNA Rapid ROXANN Positive (NEGATIVE) A 12/30/21 23:06 - Plan (1) Pneumonia due to COVID-19 virus Status: Acute Plan: SUPPLEMENTAL OXYGEN, IV FLUIDS, IV ANTIBITOTICS, NEB TX, IV REMDESIVIR, IV STEROIDS, IVERMECTIN, FLUVOXAMINE, IMMUNE SUPPLEMENTS (2) Acute dehydration Status: Acute (3) Syncopal episodes Status: Acute Qualifiers: Syncope type: unspecified Qualified Code(s): R55 - Syncope and collapse
[2022-01-02] MEDS ORDERED: VITAMIN D3 125 mcg (5,000 UNITS) PO SCH (09:00)
[2022-01-02] MEDS ORDERED: VITAMIN A PO SCH (09:00)
[2022-01-02 09:32] VITALS: BP 107/64
== END 2022-01-02 15:30 | disposition home or self-care (01) ==
LOC: ICU 20:25 → ER 20:25 → ICU 12-31 02:37
PROVIDERS: ADMIT Internal Medicine; ATTEND Internal Medicine
DX: R55 Syncope and collapse; U07.1 COVID-19; R29.6 Repeated falls; J12.82 Pneumonia due to coronavirus disease 2019; R94.5 Abnormal results of liver function studies; E86.0 Dehydration; R79.1 Abnormal coagulation profile; R94.31 Abnormal electrocardiogram [ECG] [EKG]; R06.02 Shortness of breath